=== PATIENT | male | born 1970 | race Caucasian/White ===

== ENCOUNTER 2017-11-16 13:14 | Observation (INO) | payer BC ==
[2017-11-16] MEDS: ASPIRIN 81 MG TAB PO (13:32)
[2017-11-16] MEDS: NITROGLYCERIN 2% 1 GM OINT PKT TD (13:33)
[2017-11-16] MEDS: NITROGLYCERIN (SL) 0.4 MG TAB SL (13:33)
[2017-11-16 13:35] LABS: ADD MAN DIFF? NO
[2017-11-16 13:37] LABS: BASOPHILS % 0.5 % (0.0-2.0); EOSINOPHILS # 0.4 10^3/ul (0.0-0.5); HEMATOCRIT 46.2 % (42.0-52.0); HEMOGLOBIN 15.4 g/dl (14.0-18.0); LYMPHOCYTES # 2.9 10^3/ul (0.8-2.9); LYMPHOCYTES % 33.2 % (15.0-51.0); MEAN CORPUSCULAR HEMOGLOBIN 29.8 pg (29.0-33.0); MEAN CORPUSCULAR HGB CONC 33.3 g/dl (32.0-37.0); MEAN CORPUSCULAR VOLUME 89.4 fl (82.0-101.0); MEAN PLATELET VOLUME 9.9 fl (7.4-10.4); MONOCYTE # 0.6 10^3/ul (0.3-0.9); MONOCYTES % 6.3 % (0.0-11.0); NEUTROPHIL # 4.8 10^3/ul (1.6-7.5); NEUTROPHILS % 54.7 % (39.0-77.0); PLATELET COUNT 227 10^3/UL (140-415); RED BLOOD COUNT 5.17 10^6/ul (4.70-6.10); RED CELL DISTRIBUTION WIDTH 12.9 % (11.5-14.5)
[2017-11-16 13:37] LABS: WHITE BLOOD COUNT 8.7 10^3/ul (4.8-10.8)
[2017-11-16 13:55] LABS: ANION GAP 13 (8-16); BLOOD UREA NITROGEN 14 mg/dl (7-20); CALCIUM 9.9 mg/dl (8.4-10.2); CARBON DIOXIDE 26 mmol/L (21-31); CHLORIDE 106 mmol/L (97-110); CREATININE 0.88 mg/dl (0.61-1.24); GLUCOSE 182 mg/dl (70-220); POTASSIUM 3.9 mmol/L (3.5-5.1); SODIUM 141 mmol/L (135-144)
[2017-11-16 14:07] LABS: TROPONIN-I < 0.012 ng/ml (0.000-0.120)
[2017-11-16] MEDS ORDERED: ONDANSETRON 4 MG INJ IV (15:00)
[2017-11-16] MEDS ORDERED: NACL 0.9% 3 ML SYG IV (16:30)
[2017-11-16 18:05] LABS: HEMOGLOBIN A1C 6.9 % (0-5.9)
[2017-11-16 18:30] LABS: TROPONIN-I 0.058 ng/ml (0.000-0.120)
[2017-11-16 18:55] LABS: D-DIMER 248.08 ng/ml (<460)
[2017-11-16] MEDS: ACETAMINOPHEN 325 MG TAB PO (21:42)
[2017-11-16 22:49] LABS: ANION GAP 12 (8-16); BLOOD UREA NITROGEN 17 mg/dl (7-20); CALCIUM 9.7 mg/dl (8.4-10.2); CARBON DIOXIDE 26 mmol/L (21-31); CHLORIDE 105 mmol/L (97-110); CREATINE KINASE 355 IU/L (23-200); CREATININE 0.88 mg/dl (0.61-1.24); GLUCOSE 123 mg/dl (70-220); MAGNESIUM 2.3 mg/dl (1.7-2.5); POTASSIUM 4.2 mmol/L (3.5-5.1); SODIUM 139 mmol/L (135-144)
[2017-11-16 22:58] LABS: CK INDEX 8.3
[2017-11-17 00:22] LABS: ADD MAN DIFF? NO
[2017-11-17 00:37] LABS: BASOPHILS % 0.4 % (0.0-2.0); EOSINOPHILS # 0.3 10^3/ul (0.0-0.5); EOSINOPHILS % 3.5 % (0.0-7.0); HEMATOCRIT 41.9 % (42.0-52.0); HEMOGLOBIN 13.8 g/dl (14.0-18.0); LYMPHOCYTES # 2.4 10^3/ul (0.8-2.9); LYMPHOCYTES % 25.3 % (15.0-51.0); MEAN CORPUSCULAR HEMOGLOBIN 29.7 pg (29.0-33.0); MEAN CORPUSCULAR HGB CONC 32.9 g/dl (32.0-37.0); MEAN CORPUSCULAR VOLUME 90.1 fl (82.0-101.0); MEAN PLATELET VOLUME 10.3 fl (7.4-10.4); MONOCYTE # 0.7 10^3/ul (0.3-0.9); MONOCYTES % 7.2 % (0.0-11.0); NEUTROPHILS % 63.1 % (39.0-77.0); PLATELET COUNT 198 10^3/UL (140-415); RED BLOOD COUNT 4.65 10^6/ul (4.70-6.10); RED CELL DISTRIBUTION WIDTH 13.2 % (11.5-14.5)
[2017-11-17 00:37] LABS: WHITE BLOOD COUNT 9.6 10^3/ul (4.8-10.8)
[2017-11-17 00:41] LABS: CHOL/HDL RATIO 4.4 RATIO; CREATINE KINASE 507 IU/L (23-200); HDL CHOLESTEROL 40 mg/dl (27-67); LDL CHOLESTEROL,CALCULATED 117 mg/dl; TRIGLYCERIDES 102 mg/dl (0-149)
[2017-11-17 00:41] LABS: CHOLESTEROL 177 mg/dl (100-200)
[2017-11-17 00:54] LABS: CK INDEX 8.6
[2017-11-17 00:59] LABS: INR 0.98; PARTIAL THROMBOPLASTIN TIME 27.1 Sec (23.0-35.0); PROTIME 13.1 Sec (11.9-14.9)
[2017-11-17] MEDS: HEPARIN 1000 UNITS/ML 10 ML INJ IV ×2 (01:18→09:04)
[2017-11-17] MEDS: HEPARIN 25000 UNITS/250 ML 250 ML IV ×2 (01:19→17:55)
[2017-11-17] MEDS: ATORVASTATIN 80 MG TAB PO (01:20)
[2017-11-17] MEDS: ASPIRIN 81 MG TAB PO ×2 (01:20→08:58)
[2017-11-17 08:10] LABS: HEMOGLOBIN A1C 7.1 % (0-5.9)
[2017-11-17 08:11] LABS: CREATINE KINASE 755 IU/L (23-200)
[2017-11-17 08:15] LABS: PARTIAL THROMBOPLASTIN TIME 35.6 Sec (23.0-35.0)
[2017-11-17 08:24] LABS: CK INDEX 9.4
[2017-11-17 14:03] LABS: CREATINE KINASE 710 IU/L (23-200)
[2017-11-17 14:21] LABS: CK INDEX 8.5
[2017-11-17 15:09] LABS: PARTIAL THROMBOPLASTIN TIME 59.6 Sec (23.0-35.0)
[2017-11-17 18:57] LABS: CREATINE KINASE 661 IU/L (23-200)
[2017-11-17 19:11] LABS: CK INDEX 6.7
== END 2017-11-17 19:53 | disposition left against medical advice (07) ==
LOC: E/R 13:14 → TEL 14:51
DX: I21.4 Non-ST elevation (NSTEMI) myocardial infarction (principal); E11.9 Type 2 diabetes mellitus without complications; F17.200 Nicotine dependence, unspecified, uncomplicated
CPT/HCPCS: 36415; 71045; 80048; 80061; 82550; 82553; 83036; 83735; 84484; 85025; 85378; 85610; 85730; 93005; 93306; 99285-25; G0378